=== PATIENT | male | born 1945 | race Caucasian/White ===

== ENCOUNTER → 2021-10-01 | Outpatient (CLI) | payer MEDICARE, SELFPAY ==
--- NOTE | 2021-10-01 10:52 | BD_ITS ---
STUDY: DUAL ENERGY X-RAY ABSORPTIOMETRY / DXA REASON FOR EXAM: Male, 75 years old. Osteopenia TECHNIQUE: Bone Mineral Density (BMD) measurements of lumbar spine and bilateral hips were obtained. COMPARISON: None. FINDINGS: Lumbar Spine (L1-L4): g/cm2 (1.181) / T-score (0.8) / Z-score (1.9) Findings are suggestive of normal bone density with a low fracture risk. Left Femur Total: g/cm2 (1.007) / T-score (-0.2) / Z-score (0.8) Left Femoral Neck: g/cm2 (0.749) / T-score (-1.3) / Z-score (0.1) Right Femur Total: g/cm2 (0.864) / T-score (-1.1) / Z-score (-0.2) Right Femoral Neck: g/cm2 (0.664) / T-score (-2.0) / Z-score (-0.5) BD/Dexa Bone Density Study IMPRESSION: The patient is considered osteopenic as outlined below according to World Anthony Organization (WHO) criteria with a moderate fracture risk. Reference Information: The T-score is the number of standard deviations above or below the standard which is normal for young adults at their peak bone mineral density. The World Health Organization (WHO) interprets the T-scores as follows: Above -1 Normal bone density Between -1 and -2.5 Osteopenia Equal to / or below -2.5 Osteoporosis As a practical clinical guideline, osteopenia may be graded as follows: Mild -1 through -1.5 Moderate -1.6 through -2.0 Severe -2.1 through -2.4 The Z-score is the number of standard deviations above or below age-matched controls. A Z-score of less than -1.5 would be considered abnormal. References: 1. NIH Osteoporosis and Related Bone Diseases www osteo.org 2. International Society for Clinical Densitometry www iscd.org 3. National Osteoporosis Foundation www nof.org Electronically Signed: Naveed Lagunas MD at 13:08 EDT ,
== END | disposition home or self-care (01) ==
PROVIDERS: PCP Internal Medicine; Visit Provider Internal Medicine
DX: M85.89 Other specified disorders of bone density and structure, multiple sites (principal)
CPT/HCPCS: 77080

== ENCOUNTER → 2021-11-24 | Outpatient (CLI) | payer MEDICARE, SELFPAY ==
--- NOTE | 2021-11-24 07:49 | AAAS_ITS ---
Reason For Study: AAA Aorta Measurements Aorta Doppler Measurements Proximal aorta measures2.79cm x 2.54cm. in cross- Peak systolic flow velocities within the proximal sectional axis. aorta measure 69 cm/sec. Proximal aorta measures2.51cm. in longitudinal Peak systolic flow velocities within the mid aorta axis. measure 58 cm/sec. Mid aorta measures1.92cm x 1.92cm. in cross- Peak systolic flow velocities within the distal sectional axis. aorta measure 71 cm/sec. Mid aorta measures1.93cm. in longitudinal axis. Distal aorta measures2.64cm x 2.68cm. in cross- sectional axis. Distal aorta measures2.79cm. in longitudinal axis. Left Iliac Artery Left iliac artery measures 1.11cm x 1.30 cm. in the cross-sectional axis. Left iliac artery measures 1.03 cm. in the longitudinal axis. Peak systolic velocity in the left iliac artery measures 185 cm/sec. Right Iliac Artery Right iliac artery measures 1.09cm x 1.07 cm. in the cross-sectional axis. Right iliac artery measures 1.19 cm. in the longitudinal axis. Peak systolic velocity in the right iliac artery measures 102 cm/sec. Procedure Aorta IVC Iliac vasculature or bypass grafts 24868. Exam performed in department. VL/AAA Screening Interpretation Summary Maximal diameter of the proximal abdominal aorta at 2.79 x 2.54 cm consistent w ith ectasia. Maximal diameter of the distal abdominal aorta at 2.64 x 2.68 cm diameter consi stent with aortic ectasia Normal flow rates noted in the abdominal aorta Normal left common iliac 1.11 x 1.3 cm in diameter Normal right common iliac 1.09 x 1.07 cm in diameter Ordering Physician: Kitty Paul Referring Physician: Kitty Paul Performed By: Kendra Rudd, RDCS, RVT
== END | disposition home or self-care (01) ==
PROVIDERS: PCP Internal Medicine; Referring Provider Internal Medicine; Visit Provider Internal Medicine
DX: I71.40 Abdominal aortic aneurysm, without rupture, unspecified (principal)
CPT/HCPCS: 76706

== ENCOUNTER → 2022-04-06 | Outpatient (CLI) | payer MEDICARE, SELFPAY ==
[2022-04-06 12:27] LABS: Absolute Lymphocyte Count 1.71 X10^3/uL (0.83-4.51); Absolute Neutrophil Count 5.6 X10^3/uL (2.0-7.7); Basophil# 0.03 X10^3/uL; Basophil% 0.4 % (0-1); Eosinophil# 0.11 X10^3/uL; Eosinophils% 1.4 % (0-5); Hematocrit 47.4 % (40-54); Hemoglobin 15.4 g/dL (13.0-16.5); Lymphocyte # 1.71 X10^3/ul (0.83-4.51); Lymphocyte % 21.1 % (19-41); Mean Corp Hgb Conc 32.5 g/dL (32-36); Mean Corpuscular Hgb 30.3 pg (27.0-32.0); Mean Corpuscular Volume 93.3 fL (80-94); Mean Platelet Vol. 11.6 fl (6.2-12.0); Monocyte# 0.56 X10^3/uL; Monocyte% 6.9 % (0-10); NRBC Flagged by Analyzer 0 % (0-5); Neutrophil # 5.62 X10^3/uL (2.7-7.7); Neutrophil % 69.3 % (47-70); Platelet Count 214 K/mm3 (150-450); RBC Distribution Width CV 13.3 % (11.6-14.6); RBC Distribution Width SD 45.6 fl (35.1-43.9); Red Blood Count 5.08 M/mm3 (4.6-6.2); White Blood Count 8.1 K/mm3 (4.4-11.0)
[2022-04-06 12:46] LABS: Hemoglobin A1c 5.8 % (3.8-5.6)
[2022-04-06 12:56] LABS: ALB/GLOB Ratio 1.3 RATIO (0.9-2.4); AST(SGOT) 14 U/L (15-37); Alanine Aminotransfer ALT/SGPT 19 U/L (16-61); Alkaline Phosphatase 63 U/L (45-117); Anion Gap 7 (5-15); BUN 19 mg/dL (7-18); Calcium,Total 9.2 mg/dL (8.5-10.1); Chloride 104 mmol/L (98-107); Cholesterol 156 mg/dL (200); Creatinine, Serum 1.19 mg/dL (0.70-1.30); EST Glomerular Filtration Rate 63 mL/min (>60); Est Glom Filt Rate - Afr Amer 76 mL/min (>60); Glucose 107 mg/dL (74-106); High Density Lipoprotein 37 mg/dL; Potassium 4.2 mmol/L (3.5-5.1); Sodium Level 140 mmol/L (136-145); Triglycerides 114 mg/dL; Very Low Density Lipoprotein 23 mg/dL (5-40)
== END | disposition home or self-care (01) ==
LOC: BIMLAB 09:37
PROVIDERS: PCP Internal Medicine; Referring Provider Internal Medicine; Visit Provider Internal Medicine
DX: L98.9 Disorder of the skin and subcutaneous tissue, unspecified (principal); R10.32 Left lower quadrant pain; I10 Essential (primary) hypertension; R73.03 Prediabetes; I25.10 Atherosclerotic heart disease of native coronary artery without angina pectoris; E78.2 Mixed hyperlipidemia
CPT/HCPCS: 36415; 80053; 80061; 83036; 85025

== ENCOUNTER → 2022-05-01 | Outpatient (CLI) | payer MEDICARE, SELFPAY ==
--- NOTE | 2022-05-01 08:10 | CT_ITS ---
STUDY: CT ABDOMEN AND PELVIS WITH CONTRAST REASON FOR EXAM: Male, 76 years old. LLQ abdominal pain RADIATION DOSAGE (If Supplied By Facility): CTDIvol = ( 20.70 ) mGy, DLP = ( 1229.99 ) mGycm TECHNIQUE: Transaxial images were obtained from the dome of the diaphragm to the symphysis pubis with oral contrast. Oral and amp; IV Readi-CAT and amp; 100mL Isovue-300 was administered. Sagittal and coronal images were reconstructed. Individualized dose optimization techniques were used for this CT. COMPARISON: None. FINDINGS: The visualized lung bases are unremarkable. Calcified coronary vessels noted, there is aneurysmal dilatation of the ascending thoracic aorta at 4.29 cm. Normal liver. Normal gallbladder and extrahepatic biliary system. Normal spleen. Normal pancreas. Normal bilateral adrenal glands. Normal right kidney. Normal left kidney. Normal visualized stomach. Normal small intestine. Retained stool noted throughout the colon, scattered diverticula, no CT evidence of acute diverticulitis. There is non-visualization of the appendix. There is diffuse atherosclerotic calcification of the abdominal aorta with elongation and tortuosity, but without a demonstrated aneurysm. Normal inferior vena cava. Normal retroperitoneum. Normal urinary bladder. Normal abdominal wall. There are diffuse degenerative changes of the visualized lumbar spine, and pelvis. Chronic compression fracture affecting the superior endplate of L4.. CT/Abdomen/Pelvis WITH Contrast IMPRESSION: No suspicious solid organ abnormality Scattered colonic diverticula, no CT evidence of acute diverticulitis. 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
== END | disposition home or self-care (01) ==
PROVIDERS: PCP Internal Medicine; Visit Provider Internal Medicine
DX: R10.9 Unspecified abdominal pain (principal)
CPT/HCPCS: 74177; Q9967

== ENCOUNTER → 2024-07-04 | Outpatient (CLI) | payer MEDICARE, SELFPAY | END | disposition home or self-care (01) | PROVIDERS: PCP Internal Medicine; Referring Provider Internal Medicine; Visit Provider Internal Medicine | DX: R06.02 Shortness of breath (principal) | CPT/HCPCS: 94060; 94726; 94729 ==